=== PATIENT | female | born 1955 | race American Indian/Alaskan Native ===

== ENCOUNTER → 2017-05-13 | Outpatient (CLI) | payer MEDICARE | LOC: SLR 11:00 | PROVIDERS: ATTEND Otolaryngology | DX: G47.30 Sleep apnea, unspecified (principal) | CPT/HCPCS: 95810 ==

== ENCOUNTER 2017-06-16 12:53 | Emergency (ER) | payer MEDICARE ==
[2017-06-16] MEDS ORDERED: ULTRAM PO ONE (13:45)
--- NOTE | 2017-06-16 14:09 | Emergency Department Report ---
Chief Complaint: Extremity Injury, Lower Stated Complaint: BILAT LEG SWELLING/RASH Time Seen by Provider: 06/16/17 13:45 - HPI History of Present Illness: The patient is a 61-year-old female with a history of left knee replacement, who presents for evaluation of left knee pain. She reports recurrence of left knee pain for the past 4 weeks, constant, 10/10 in severity for the past one to 2 days, exacerbated with weightbearing or tendon ambulation. She denies new trauma to the knee, redness, swelling, paresthesias, motor deficit in the left leg or foot distal to the knee. - Exam Vital Signs: Vital Signs 06/16/17 13:01 Temperature 98.7 F Pulse Rate 70 Respiratory 18 Rate Blood Pressure 144/55 O2 Sat by Pulse 96 Oximetry MSE screening note: Focused history and physical exam performed. Due to findings the following was ordered: ED Disposition for MSE Clinical Impression: Acute pain of left knee Disposition: DC-01 TO HOME OR SELFCARE Is pt being admited?: No Does the pt Need Aspirin: No Condition: Stable Instructions: Arthralgia (ED) Referrals: JORGE ALBERTO BHAT MD [Primary Care Provider] - 3-5 Days Time of Disposition: 14:07
--- NOTE | 2017-06-16 14:53 | Emergency Department Report ---
ED General Adult HPI - General Chief complaint: Extremity Injury, Lower Stated complaint: BILAT LEG SWELLING/RASH Time Seen by Provider: 06/16/17 13:45 Source: patient Mode of arrival: Ambulatory Limitations: No Limitations - History of Present Illness Initial comments: The patient is a 61-year-old female with a history of left knee replacement, who presents for evaluation of left knee pain. She reports recurrence of left knee pain for the past 4 weeks, constant, 10/10 in severity for the past one to 2 days, exacerbated with weightbearing or tendon ambulation. She denies new trauma to the knee, redness, swelling, paresthesias, motor deficit in the left leg or foot distal to the knee. Patient also complains of rash on her buttocks between her gluteal cleft in her vaginal area. Patient reports that the rash is light in each cheek. Severity scale (0 -10): 5 - Related Data Home Medications Medication Instructions Recorded Confirmed Last Taken Diclofenac Sodium 75 mg PO BID 07/15/14 07/22/14 07/19/14 Losartan [Cozaar] 100 mg PO QDAY 07/15/14 07/22/14 07/22/14 Methadone [Dolophine] 10 mg PO Q12H 07/15/14 07/22/14 07/21/14 Tizanidine HCl [Zanaflex] 4 mg PO BID 07/15/14 07/22/14 07/21/14 amLODIPine [Norvasc] 10 mg PO DAILY 07/15/14 07/22/14 07/22/14 metFORMIN [Glucophage] 500 mg PO DAILY 07/15/14 07/22/14 07/01/14 Previous Rx's Medication Instructions Recorded Last Taken Type traMADol [Ultram] 50 mg PO Q6HR PRN #20 tablet 06/16/17 Unknown Rx Allergies Allergy/AdvReac Type Severity Reaction Status Date / Time No Known Allergies Allergy Verified 07/15/14 11:28 ED Review of Systems ROS: Stated complaint: BILAT LEG SWELLING/RASH Other details as noted in HPI ENT: denies: ear pain, throat pain Respiratory: denies: cough, shortness of breath, wheezing Cardiovascular: denies: chest pain, palpitations Endocrine: no symptoms reported Gastrointestinal: denies: abdominal pain, nausea, diarrhea Genitourinary: denies: urgency, dysuria, discharge Musculoskeletal: joint swelling (left knee), arthralgia (left knee) Skin: rash (buttocks and vaginal area) Neurological: denies: headache, weakness, paresthesias Psychiatric: denies: anxiety, depression Hematological/Lymphatic: denies: easy bleeding, easy bruising ED Past Medical Hx - Past Medical History Hx Hypertension: Yes Hx Congestive Heart Failure: No Hx Diabetes: Yes Hx Arthritis: Yes (BACK HAD INJECTION TO BURN NERVE 05/2014) Hx Asthma: No Hx COPD: No Hx HIV: No Additional medical history: elevated cholesterol,gout - Surgical History Additional Surgical History: left knee replacment - Social History Smoking Status: Never Smoker Substance Use Type: None - Medications Home Medications: Home Medications Medication Instructions Recorded Confirmed Last Taken Type Diclofenac Sodium 75 mg PO BID 07/15/14 07/22/14 07/19/14 History Losartan [Cozaar] 100 mg PO QDAY 07/15/14 07/22/14 07/22/14 History Methadone [Dolophine] 10 mg PO Q12H 07/15/14 07/22/14 07/21/14 History Tizanidine HCl [Zanaflex] 4 mg PO BID 07/15/14 07/22/14 07/21/14 History amLODIPine [Norvasc] 10 mg PO DAILY 07/15/14 07/22/14 07/22/14 History metFORMIN [Glucophage] 500 mg PO DAILY 07/15/14 07/22/14 07/01/14 History traMADol [Ultram] 50 mg PO Q6HR PRN #20 tablet 06/16/17 Unknown Rx ED Physical Exam - General Limitations: No Limitations General appearance: alert, in no apparent distress - Head Head exam: Present: atraumatic, normocephalic - Eye Eye exam: Present: normal appearance - ENT ENT exam: Present: mucous membranes moist - Neck Neck exam: Present: normal inspection - Respiratory Respiratory exam: Present: normal lung sounds bilaterally. Absent: respiratory distress - Expanded Lower Extremity Exam Left Hip exam: Present: normal inspection Upper Leg exam: Present: normal inspection Knee exam: Present: full ROM, tenderness, swelling Lower Leg exam: Present: full ROM, tenderness, swelling Neuro vascular tendon exam: Present: no vascular compromise Gait: Positive: observed and limited by pain Right Knee exam: Present: normal inspection, full ROM, swelling. Absent: tenderness Lower Leg exam: Present: full ROM, tenderness, swelling Foot/Toe exam: Present: full ROM, tenderness, swelling - Back Exam Back exam: Present: normal inspection - Neurological Exam Neurological exam: Present: alert, oriented X3 - Psychiatric Psychiatric exam: Present: normal affect, normal mood - Skin Skin exam: Present: rash (hypopigmented macular rash on buttocks in genital area ) ED Course Vital Signs 06/16/17 13:01 Temperature 98.7 F Pulse Rate 70 Respiratory 18 Rate Blood Pressure 144/55 O2 Sat by Pulse 96 Oximetry ED Medical Decision Making - Medical Decision Making Discussed the patient she needs to follow up with her orthopedist. Take pain medication as prescribed. Follow-up with the sales and leasing consultant. Patient verbalized understanding Critical care attestation.: If time is entered above; I have spent that time in minutes in the direct care of this critically ill patient, excluding procedure time. ED Disposition Clinical Impression: Rash, Chronic knee pain after total replacement of left knee joint Disposition: - TO HOME OR SELFCARE Is pt being admited?: No Does the pt Need Aspirin: No Condition: Stable Instructions: Arthralgia (ED), Acute Rash (ED) Additional Instructions: Please take pain medication as prescribed. Please follow-up with Dr. orthopedic provider. Also please follow up with dermatology I have listed one below. Prescriptions: traMADol [Ultram] 50 mg PO Q6HR PRN #20 tablet PRN Reason: Pain Referrals: JORGE ALBERTO BHAT MD [Primary Care Provider] - 3-5 Days MONICA NICHOLE MD [Staff Physician] - 3-5 Days BASSEM RODRIGUEZ MD [Staff Physician] - 3-5 Days
[2017-06-16 15:39] VITALS: BP 144/76
== END 2017-06-16 15:39 | disposition home or self-care (01) ==
LOC: ED 12:53
DX: M25.562 Pain in left knee (principal); R21 Rash and other nonspecific skin eruption; G89.29 Other chronic pain; E11.9 Type 2 diabetes mellitus without complications; M19.90 Unspecified osteoarthritis, unspecified site; I10 Essential (primary) hypertension
CPT/HCPCS: 99282